=== PATIENT | male | born 1995 | race Caucasian/White ===

== ENCOUNTER 2018-12-11 06:18 | Day surgery (SDC) | payer BC ==
[~2018-12-11] VITALS: Ht 182.9 cm; Wt 77.2 kg
[2018-12-11 07:14] VITALS: Ht 182.9 cm; Wt 77.2 kg
[2018-12-11] MEDS ORDERED: NO MEDS (07:20)
[2018-12-11 07:24] VITALS: BP 124/66; PULSE 72; RESP 23
--- NOTE | 2018-12-11 07:43 | PREAC ---
Date/Time of Note Date/Time of Note DATE: 12/11/18 TIME: 07:41 Anesthesia Eval and Record Evaluation Time Pre-Procedure Interview DATE: 12/11/18 TIME: 07:41 Age 23 Sex male NPO: 8 hrs Preoperative diagnosis abdominal pain Planned procedure EGD Past Medical History Past Medical History: None Surgery & Anesthesia Issues No known issue Meds Anticoagulation: No Beta Luz within 24 hr: No Reason Beta Luz not given: Pt. not on B-Luz Reported Medications [No Meds] No Conflict Check 12/11/18 Meds reviewed: Yes Allergies Coded Allergies: No Known Drug Allergies (Verified Allergy, Mild, 10/22/10) Allergies Reviewed: Yes Labs/Studies Labs Reviewed: Reviewed by anesthesiologist test: N/A Pre-procedure Exam Last vitals Vital Signs Date Temp Pulse Resp B/P (MAP) Pulse Ox O2 O2 Flow FiO2 Time Delivery Rate 12/11/18 98.0 72 23 124/66 99 Room Air 07:24 (85) Airway: Adequate mouth opening, Adequate thyromental dist Mallampati: Mallampati II Teeth: Normal Lung: Normal Heart: Normal ASA Physical Status ASA physical status: 2 Emergency: None Planned Anesthetic General/MAC: MAC Planned Pain Management Parenteral pain med Pre-operative Attestations Prior to commencing anesthesia and surgery, the patient was re-evaluated, there was verification of: *The patient's identity *The results of appropriate recent lab work and preoperative vital signs *The above evaluation not changing prior to induction *Anesthetic plan, risk benefits, alternative and complications discussed with patient/family; questions answered; patient/family understands, accepts and wishes to proceed. JAJA PANTOJA MD December 11, 2018 07:43
[2018-12-11] MEDS ORDERED: PROPOFOL 40 ML ONE (07:55)
--- NOTE | 2018-12-11 08:13 | PAC ---
Date/Time of Note Date/Time of Note DATE: 12/11/18 TIME: 08:12 Post-Anesthesia Notes Post-Anesthesia Note Last documented vital signs Vital Signs Date Temp Pulse Resp B/P (MAP) Pulse Ox O2 O2 Flow FiO2 Time Delivery Rate 12/11/18 98.0 72 23 124/66 99 Room Air 07:24 (85) Activity: WNL Respiratory function: WNL Cardiovascular function: WNL Mental status: Baseline Pain reasonably controlled: Yes Hydration appropriate: Yes Nausea/Vomiting absent: Yes Comments BP:112/56, P:67, Spo2:100%, T:98,8 JAJA PANTOJA MD December 11, 2018 08:13
[2018-12-11 09:05] VITALS: BP 108/60; PULSE 67; RESP 18
== END 2018-12-11 10:51 | disposition home or self-care (01) ==
LOC: GIL 06:18
PROVIDERS: ATTEND Internal Medicine Gastroenterology
DX: K64.8 Other hemorrhoids (principal); K29.50 Unspecified chronic gastritis without bleeding; B96.89 Other specified bacterial agents as the cause of diseases classified elsewhere; R19.7 Diarrhea, unspecified
CPT/HCPCS: 43239; 45380; Z7610; 88305; 88312